=== PATIENT | female | born 2000 | race Caucasian/White ===

== ENCOUNTER 2020-11-21 22:41 | Outpatient (CLI) | payer OTHER ==
[~2020-11-21 22:41] MED LIST: OMEPRAZOLE40 MG PO; PRENATAL VITAM1 EAC8 PO
[2020-11-29] MEDS ORDERED: IBUPROFEN800 MG PO (07:56)
[2020-11-29] MEDS ORDERED: DOCUSATE SODIU100 MG PO (07:56)
[2020-11-29] MEDS ORDERED: HYDROCODONE-AC1 EAC1 PO (07:56)
== END 2020-11-22 00:02 | disposition home or self-care (01) ==
LOC: GENOP 22:41
DX: O99.891 Other specified diseases and conditions complicating pregnancy (principal); R10.9 Unspecified abdominal pain; M54.9 Dorsalgia, unspecified; O99.333 Smoking (tobacco) complicating pregnancy, third trimester; F17.210 Nicotine dependence, cigarettes, uncomplicated; O99.343 Other mental disorders complicating pregnancy, third trimester; F32.9 Major depressive disorder, single episode, unspecified; Z79.899 Other long term (current) drug therapy; Z3A.38 38 weeks gestation of pregnancy
CPT/HCPCS: 59025; 81001; G0463

== ENCOUNTER 2020-11-27 13:02 | Outpatient (CLI) | payer OTHER ==
[2020-11-27 14:08] LABS: HEMOGLOBIN 10.7 gm/dl (12.3-15.3); RED BLOOD COUNT 3.87 M/UL (4.00-5.10); WHITE BLOOD COUNT 9.9 K/UL (4.5-11.0)
[2020-11-29] MEDS ORDERED: HYDROCODONE-AC1 EAC1 PO (07:56)
[2020-11-29] MEDS ORDERED: DOCUSATE SODIU100 MG PO (07:56)
[2020-11-29] MEDS ORDERED: IBUPROFEN800 MG PO (07:56)
== END 2020-11-27 14:01 | disposition home or self-care (01) ==
LOC: GENOP 13:02
PROVIDERS: Obstetrics & Gynecology
DX: Z01.812 Encounter for preprocedural laboratory examination (principal); O34.219 Maternal care for unspecified type scar from previous cesarean delivery
CPT/HCPCS: 36415; 81001; 85025

== ENCOUNTER 2020-11-29 04:25 | Inpatient (IN) | payer OTHER ==
[~2020-11-29] VITALS: Ht 162.6 cm; Wt 63.5 kg
[2020-11-29] MEDS ORDERED: OMEPRAZOLE40 MG PO (05:19)
[2020-11-29] MEDS ORDERED: IBUPROFEN800 MG PO (07:56)
[2020-11-29] MEDS ORDERED: DOCUSATE SODIU100 MG PO (07:56)
[2020-11-29] MEDS ORDERED: HYDROCODONE-AC1 EAC1 PO (07:56)
[2020-11-30 07:05] LABS: HEMOGLOBIN 8.6 gm/dl (12.3-15.3)
== END 2020-11-30 17:40 | disposition home or self-care (01) | DRG 788 ==
LOC: OB 04:25
PROVIDERS: ADMIT Obstetrics & Gynecology
PROC: 4A1HXCZ Monitoring of Products of Conception, Cardiac Rate, External Approach (ICD-10-PCS; 2020-11-29)
PROC: 10D00Z1 Extraction of Products of Conception, Low, Open Approach (ICD-10-PCS; principal; 2020-11-29 07:15)
DX: O34.211 Maternal care for low transverse scar from previous cesarean delivery (principal); Z3A.39 39 weeks gestation of pregnancy; Z37.0 Single live birth; Z20.822 Contact with and (suspected) exposure to COVID-19; Z83.3 Family history of diabetes mellitus; Z82.49 Family history of ischemic heart disease and other diseases of the circulatory system; Z81.8 Family history of other mental and behavioral disorders; Z80.0 Family history of malignant neoplasm of digestive organs
CPT/HCPCS: 36415; 82800; 85014; 85018; 90471; 90707; C9113; J0690; J1200; J1885; J2250; J2274; J2300; J2405; J2590; J3010; J7120; U0003

== ENCOUNTER 2021-03-27 05:14 | Emergency (ER) | payer OTHER ==
[~2021-03-27 05:14] MED LIST changes: +DOCUSATE SODIU100 MG PO; +HYDROCODONE-AC1 EAC1 PO; +IBUPROFEN800 MG PO
[2021-03-27] MEDS ORDERED: ZOFRAN ODT 4 MG4 MG PO (05:44)
== END 2021-03-27 05:55 | disposition home or self-care (01) ==
LOC: ER1 05:14
DX: B34.9 Viral infection, unspecified (principal); J06.9 Acute upper respiratory infection, unspecified; R11.0 Nausea
CPT/HCPCS: 99282

== ENCOUNTER 2021-05-03 23:32 | Emergency (ER) | payer OTHER ==
[~2021-05-03 23:32] MED LIST changes: +ZOFRAN ODT 4 MG4 MG PO
== END 2021-05-04 03:09 | disposition left against medical advice (07) ==
LOC: ER1 23:32
DX: Z53.21 Procedure and treatment not carried out due to patient leaving prior to being seen by health care provider (principal)
CPT/HCPCS: 81001; 87086

== ENCOUNTER 2021-10-23 23:46 | Outpatient (CLI) | payer OTHER | END 2021-10-24 01:00 | disposition home or self-care (01) | LOC: GENOP 23:46 | DX: O99.891 Other specified diseases and conditions complicating pregnancy (principal); O47.03 False labor before 37 completed weeks of gestation, third trimester; R05.9 Cough, unspecified; R06.02 Shortness of breath; R50.9 Fever, unspecified; Z3A.34 34 weeks gestation of pregnancy | CPT/HCPCS: 81001; 83518; G0463 ==

== ENCOUNTER 2021-11-21 13:11 | Outpatient (CLI) | payer OTHER ==
[2021-11-21 13:53] LABS: HEMOGLOBIN 10.9 gm/dl (12.3-15.3); RED BLOOD COUNT 3.95 M/UL (4.00-5.10); WHITE BLOOD COUNT 11.6 K/UL (4.5-11.0)
== END 2021-11-21 14:05 | disposition home or self-care (01) ==
LOC: OPSV2 13:11 → GENOP 13:11
PROVIDERS: Obstetrics & Gynecology
DX: Z01.812 Encounter for preprocedural laboratory examination (principal)
CPT/HCPCS: 81001; 85025

== ENCOUNTER 2021-11-24 04:51 | Inpatient (IN) | payer OTHER ==
[~2021-11-24] VITALS: Ht 162.6 cm; Wt 82.6 kg
[2021-11-24] MEDS ORDERED: PRENATABS FA T1 EACH PO (06:39)
[2021-11-24] MEDS ORDERED: TYLENOL EXTRA500 MG PO (06:39)
[2021-11-24] MEDS ORDERED: IBUPROFEN600 MG PO (08:21)
[2021-11-24] MEDS ORDERED: DOCUSATE SODIU100 MG PO (08:21)
[2021-11-24] MEDS ORDERED: HYDROCODON-ACE1 EAC4 PO (08:21)
[2021-11-24 14:08] LABS: HEMOGLOBIN 10.3 gm/dl (12.3-15.3)
[2021-11-25 05:47] LABS: HEMOGLOBIN 7.6 gm/dl (12.3-15.3)
[2021-11-26] MEDS ORDERED: FERROUS SULFAT325 MG PO (09:15)
== END 2021-11-26 12:57 | disposition home or self-care (01) | DRG 787 ==
LOC: OB 04:51
PROVIDERS: ADMIT Obstetrics & Gynecology
PROC: 4A1HXCZ Monitoring of Products of Conception, Cardiac Rate, External Approach (ICD-10-PCS; 2021-11-24)
PROC: 3E0234Z Introduction of Serum, Toxoid and Vaccine into Muscle, Percutaneous Approach (ICD-10-PCS; 2021-11-24)
PROC: 10D00Z1 Extraction of Products of Conception, Low, Open Approach (ICD-10-PCS; principal; 2021-11-24 13:30)
DX: O34.211 Maternal care for low transverse scar from previous cesarean delivery (principal); D62 Acute posthemorrhagic anemia; Z20.822 Contact with and (suspected) exposure to COVID-19; Z3A.39 39 weeks gestation of pregnancy; Z37.0 Single live birth; O99.62 Diseases of the digestive system complicating childbirth; Z28.310 Unvaccinated for COVID-19; K21.9 Gastro-esophageal reflux disease without esophagitis; O90.81 Anemia of the puerperium; O99.334 Smoking (tobacco) complicating childbirth; F17.210 Nicotine dependence, cigarettes, uncomplicated; Z83.3 Family history of diabetes mellitus; Z82.49 Family history of ischemic heart disease and other diseases of the circulatory system; Z81.8 Family history of other mental and behavioral disorders; Z80.0 Family history of malignant neoplasm of digestive organs; O99.344 Other mental disorders complicating childbirth; F41.9 Anxiety disorder, unspecified; Z23 Encounter for immunization
CPT/HCPCS: 36415; 81001; 82800; 85014; 85018; 90471; 90715; C9113; J0690; J1170; J1200; J1885; J2210; J2274; J2370; J2405; J2590; J3010